=== PATIENT | female | born 1970 | race African-American/Black ===

== ENCOUNTER 2017-05-04 18:19 | Emergency (ER) | payer OTHER ==
[~2017-05-04] VITALS: Ht 149.9 cm; Wt 94.5 kg
[~2017-05-04 18:19] MED LIST: CHOL100062 PO; CLON2TAB3 PO; DIVA500T7 PO; DOCU-144 PO; FAMO20TA18 PO; FLUO40CA10 PO; METH-493 PO; POLY17PO6 PO; SULI150T39 PO
[2017-05-04 18:22] VITALS: Ht 149.9 cm; Wt 94.5 kg
[2017-05-04] MEDS ORDERED: EPINEPHrine 0.1 MG/ML SYG ONE (19:08)
[2017-05-04] MEDS ORDERED: OFLO5DRO3 OP (19:42)
--- NOTE | 2017-05-04 23:00 | ERD ---
ER Documentation Chief Complaint Date/Time DATE: 05/04/17 TIME: 22:52 Chief Complaint was taking a shower when glass shattered and hit her eye and body HPI This patient is a 46-year-old female presenting to the emergency department with complaints of possible glass in her left lower leg after a shower door shattered in her bathroom 2 days ago. She denies feeling foreign body anywhere else. She reports mild pain associated with the foreign body. Additionally she complains of right eye redness and mild pain which is been ongoing also for the past 2 days. She denies this being related to the last or incident. She denies fevers, chills, or other symptoms currently. She did not lose consciousness or have a head injury during the accident. ROS All systems reviewed and are negative except as per history of present illness. Medications Home Meds Active Scripts Ofloxacin (Ofloxacin) 5 Ml Drops, 2 DROP OP TID for 7 Days, #1 BOTTLE Prov:YESSI MOTTA PA-C 05/04/17 Polyethylene Glycol* (Miralax*) 17 Gm Powd.pack, 17 GM PO DAILY, #7 Prov:DASHA STONER MD 06/01/16 Docusate Sodium* (Colace*) 100 Mg Capsule, 100 MG PO TID, #21 CAP Prov:DASHA STONER MD 06/01/16 Reported Medications Sulindac* (Sulindac*) 150 Mg Tablet, 150 MG PO BID, TAB 05/29/16 Famotidine* (Famotidine*) 20 Mg Tablet, 20 MG PO DAILY, #30 TAB 05/29/16 Cholecalciferol* (Vitamin D3*) 1,000 Unit Tablet, 1000 UNIT PO DAILY, TAB 07/10/15 Clonazepam* (Clonazepam*) 2 Mg Tablet, 2 MG PO DAILY, TAB 07/10/15 Fluoxetine Hcl* (Prozac*) 40 Mg Capsule, 80 MG PO DAILY, CAP 07/10/15 Methimazole* (Methimazole*) 5 Mg Tablet, 5 MG PO DAILY, TAB 07/10/15 Divalproex Sodium* (Depakote*) 500 Mg Tablet.dr, 500 MG PO BID, TAB 07/10/15 Allergies Allergies: Coded Allergies: Metronidazole HCl (Verified Allergy, Unknown, 05/29/16) rash, nausea, vomiting metoclopramide HCl (Verified Allergy, Unknown, 05/29/16) nausea, vomiting, hives metronidazole (Verified Allergy, Unknown, 05/29/16) rash, nausea, vomiting PMhx/Soc History of Surgery: Yes (CHOLECYSTECTOMY ) Anesthesia Reaction: No Hx Neurological Disorder: No Hx Respiratory Disorders: No Hx Cardiac Disorders: No Hx Psychiatric Problems: Yes (bipolar and anxiety) Hx Miscellaneous Medical Probl: No Hx Alcohol Use: No Hx Substance Use: No Hx Tobacco Use: No Physical Exam Vitals Vital Signs Date Time Temp Pulse Resp B/P Pulse Ox O2 Delivery O2 Flow Rate FiO2 05/04/17 18:22 98.5 90 20 132/78 100 Physical Exam Const: Morbidly obese female in no acute distress. Nontoxic-appearing. Head: Atraumatic Eyes: Injected conjunctival noted on the right side. No visual acuity deficits. EOMs are intact bilaterally. ENT: Normal External Ears, Nose and Mouth. Neck: Full range of motion..~ No meningismus. Resp: Clear to auscultation bilaterally Cardio: Regular rate and rhythm, no murmurs Abd: Soft, non tender, non distended. Normal bowel sounds Skin: No petechiae or rashes Back: No midline or flank tenderness Ext: No cyanosis, or edema Neur: Awake and alert Psych: Normal Mood and Affect Results 24 hrs Current Medications Medications (Trade) Dose Ordered Sig/Aidee Route PRN Reason Start Time Stop Time Status Last Admin Dose Admin Epinephrine 1 mg STK-MED ONCE .ROUTE 05/04/17 19:08 05/04/17 19:09 DC Procedures/MDM 46-year-old female presenting to the emergency department with complaints of glass in the left lower leg. Foreign Body Removal by me: Location: Left lower leg Anesthesia: None required Technique: Tweezers used to bluntly dissect a small piece of glass. Complications: Neurovascularly intact post procedure 48 hour wound check. Scar minimization instructions given. There was minimal bleeding. Bacitracin applied. Band-Aid applied. The right eye appears to have conjunctivitis. I prescribed ofloxacin ophthalmic drops. The patient understood and agreed with the discharge plan of diagnosis. Close follow-up with primary care physician advised. Strict ER return precautions were discussed. Departure Diagnosis: Primary Impression: Conjunctivitis Additional Impression: Foreign body of leg Condition: Fair Patient Instructions: Conjunctivitis, Non-Specific Referrals: GUTIERREZ BASS MD Additional Instructions: Follow up with your PCP within the next 1-3 days for a repeat evaluation. If you require a referral to a specialist, your Primary Care Provider may be able to provide this for you. In most patient cases, a referral is not required. If you have further questions regarding this matter, please ask your Primary Care Provider. Return the the emergency department immediately if symptoms worsen or change. If you have any questions regarding medications, ask your pharmacist or us before you leave. If any adverse reactions, occur while taking your medications, discontinue the treatment and return to the emergency department immediately. If any new or worsening symptoms, uncontrolled fevers, or other unexplained symptoms occur, return to the emergency department immediately. Take your medications as directed, and complete the entire course of treatment. YESSI MOTTA PA-C May 04, 2017 23:00
== END 2017-05-04 20:03 | disposition home or self-care (01) ==
LOC: FTE 18:19
DX: H10.9 Unspecified conjunctivitis (principal); W25.XXXA Contact with sharp glass, initial encounter; Y92.9 Unspecified place or not applicable
CPT/HCPCS: J0171; Z7502; 99283

== ENCOUNTER 2017-08-26 12:26 | Emergency (ER) | payer OTHER ==
[~2017-08-26] VITALS: Ht 149.9 cm; Wt 90.9 kg
[~2017-08-26 12:26] MED LIST changes: +OFLO5DRO3 OP
[2017-08-26 12:29] VITALS: Ht 149.9 cm; Wt 90.9 kg
[2017-08-26] MEDS ORDERED: IPRATROPIUM (NEB) 0.5 MG/2.5 ML AMP NEB STA (15:07)
[2017-08-26] MEDS ORDERED: SOD CHLORIDE 0.9% 500 ML IV STA (15:07)
[2017-08-26] MEDS ORDERED: ALBUTEROL 0.083% (NEB) 2.5 MG/3 ML AMP NEB STA (15:07)
[2017-08-26 16:01] LABS: ADD UMIC YES; UR ASCORBIC ACID 20 mg/dL (NEGATIVE); UR BILIRUBIN (Dip) NEGATIVE (NEGATIVE); UR BLOOD (Dip) NEGATIVE (NEGATIVE); UR CLARITY CLOUDY (CLEAR); UR COLOR YELLOW (YELLOW); UR GLUCOSE (Dip) NEGATIVE (NEGATIVE); UR KETONES (Dip) NEGATIVE (NEGATIVE); UR LEUKOCYTE ESTERASE (Dip) TRACE Leu/ul (NEGATIVE); UR MUCUS FEW /HPF (NONE SEEN); UR NITRITE (Dip) NEGATIVE (NEGATIVE); UR RBC 0 /HPF (0-5); UR SQUAMOUS EPITHELIAL CELL MODERATE /HPF (FEW); UR TOTAL PROTEIN (Dip) NEGATIVE (NEGATIVE); UR UROBILINOGEN (Dip) 2+ mg/dL (NEGATIVE)
[2017-08-26 16:11] LABS: ABNORMAL IP MESSAGE 1; HEMATOCRIT 38.4 % (37.0-47.0); HEMOGLOBIN 12.1 g/dl (12.0-16.0); MEAN CORPUSCULAR HEMOGLOBIN 25.5 pg (29.0-33.0); MEAN CORPUSCULAR HGB CONC 31.5 g/dl (32.0-37.0); MEAN CORPUSCULAR VOLUME 80.8 fl (82.0-101.0); NUCLEATED RED BLOOD CELLS% 0.1 /100WBC (0.0-0.0); PLATELET COUNT 492 10^3/UL (140-415); RED BLOOD COUNT 4.75 10^6/ul (4.20-5.40); RED CELL DISTRIBUTION WIDTH 14.7 % (11.5-14.5); WHITE BLOOD COUNT 16.3 10^3/ul (4.8-10.8)
[2017-08-26 16:13] LABS: POSITIVE DIFF @See below
[2017-08-26] MEDS ORDERED: ALBUTEROL/IPRATROPIUM (NEB) 3 ML AMP HHN STA (16:28)
[2017-08-26 16:34] LABS: EOSINOPHILS % (M) 7 % (0-7); ERYTHROBLAST% (NRBC) (M) 2 % (0-0); MONOCYTES % (M) 3 % (0-11); PLATELET ESTIMATE NORMAL; REACTIVE LYMPHOCYTES% (M) 4 % (0-0)
[2017-08-26 16:50] LABS: ALANINE AMINOTRANSFERASE 30 IU/L (13-69); ALBUMIN 4.7 g/dl (3.3-4.9); ALBUMIN/GLOBULIN RATIO 1.14; ALKALINE PHOSPHATASE 123 IU/L (42-121); ANION GAP 17 (8-16); ASPARTATE AMINO TRANSFERASE 19 IU/L (15-46); BILIRUBIN,INDIRECT 0.1 mg/dl (0-1.1); BILIRUBIN,TOTAL 0.1 mg/dl (0.2-1.3); BLOOD UREA NITROGEN 7 mg/dl (7-20); CALCIUM 9.7 mg/dl (8.4-10.2); CARBON DIOXIDE 26 mmol/L (21-31); CHLORIDE 106 mmol/L (97-110); CREATININE 0.82 mg/dl (0.44-1.00); GLUCOSE 104 mg/dl (70-220); POTASSIUM 3.6 mmol/L (3.5-5.1); SODIUM 145 mmol/L (135-144); TOTAL PROTEIN 8.8 g/dl (6.1-8.1)
[2017-08-26 17:03] LABS: TROPONIN-I < 0.012 ng/ml (0.00-0.12)
--- NOTE | 2017-08-26 17:19 | RADRPT ---
PROCEDURE: XR Chest. CLINICAL INDICATION: Shortness of breath. TECHNIQUE: Two views. Frontal and lateral. COMPARISON: No prior study is available for comparison. FINDINGS: There is mild atelectasis at the lung bases. The lungs are otherwise clear. The heart size is normal. There is no pleural effusion. There is no pneumothorax. IMPRESSION: 1. Mild atelectasis at the lung bases. 2. Otherwise normal chest x-ray. RPTAT: QQ .Joaquin Guaman MD, MD Date Time Electronically viewed and signed by .Joaquin Guaman MD, on 08/26/2017 17:19 .R/
--- NOTE | 2017-08-26 17:24 | ERD ---
ER Documentation Chief Complaint Chief Complaint COUGH, CONGESTION, BACK PAIN, WEAKNESS, NAUSEA AND VOMITING ROS All systems reviewed and are negative except as per history of present illness. Medications Home Meds Active Scripts Ofloxacin (Ofloxacin) 5 Ml Drops, 2 DROP OP TID for 7 Days, #1 BOTTLE Prov:YESSI MOTTA PA-C 05/04/17 Polyethylene Glycol* (Miralax*) 17 Gm Powd.pack, 17 GM PO DAILY, #7 Prov:DASHA STONER MD 06/01/16 Docusate Sodium* (Colace*) 100 Mg Capsule, 100 MG PO TID, #21 CAP Prov:DASHA STONER MD 06/01/16 Reported Medications Sulindac* (Sulindac*) 150 Mg Tablet, 150 MG PO BID, TAB 05/29/16 Famotidine* (Famotidine*) 20 Mg Tablet, 20 MG PO DAILY, #30 TAB 05/29/16 Cholecalciferol* (Vitamin D3*) 1,000 Unit Tablet, 1000 UNIT PO DAILY, TAB 07/10/15 Clonazepam* (Clonazepam*) 2 Mg Tablet, 2 MG PO DAILY, TAB 07/10/15 Fluoxetine Hcl* (Prozac*) 40 Mg Capsule, 80 MG PO DAILY, CAP 07/10/15 Methimazole* (Methimazole*) 5 Mg Tablet, 5 MG PO DAILY, TAB 07/10/15 Divalproex Sodium* (Depakote*) 500 Mg Tablet.dr, 500 MG PO BID, TAB 07/10/15 Allergies Allergies: Coded Allergies: Metronidazole HCl (Verified Allergy, Unknown, 05/29/16) rash, nausea, vomiting metoclopramide HCl (Verified Allergy, Unknown, 05/29/16) nausea, vomiting, hives metronidazole (Verified Allergy, Unknown, 05/29/16) rash, nausea, vomiting PMhx/Soc History of Surgery: Yes (CHOLECYSTECTOMY ) Anesthesia Reaction: No Hx Neurological Disorder: No Hx Respiratory Disorders: No Hx Cardiac Disorders: No Hx Psychiatric Problems: Yes (bipolar and anxiety) Hx Miscellaneous Medical Probl: No Hx Alcohol Use: No Hx Substance Use: No Hx Tobacco Use: No Physical Exam Vitals Vital Signs Date Time Temp Pulse Resp B/P Pulse Ox O2 Delivery O2 Flow Rate FiO2 08/26/17 16:53 92 18 100 21 08/26/17 15:38 82 18 100 21 08/26/17 12:29 98.8 82 18 129/87 100 Physical Exam Const: [] Head: Atraumatic Eyes: Normal Conjunctiva ENT: Normal External Ears, Nose and Mouth. Neck: Full range of motion..~ No meningismus. Resp: Clear to auscultation bilaterally Cardio: Regular rate and rhythm, no murmurs Abd: Soft, non tender, non distended. Normal bowel sounds Skin: No petechiae or rashes Back: No midline or flank tenderness Ext: No cyanosis, or edema Neur: Awake and alert Psych: Normal Mood and Affect Result Diagram: 08/26/17 1550 08/26/17 1550 Results 24 hrs Laboratory Tests Test 08/26/17 15:32 08/26/17 15:50 Urine Color YELLOW Urine Clarity CLOUDY Urine pH 5.0 Urine Specific Perkins 1.020 Urine Ketones NEGATIVEmg/dL Urine Nitrite NEGATIVEmg/dL Urine Bilirubin NEGATIVEmg/dL Urine Urobilinogen 2+mg/dL Urine Leukocyte Esterase TRACELeu/ul Urine Microscopic RBC 0/HPF Urine Microscopic WBC 3/HPF Urine Squamous Epithelial Cells MODERATE/HPF Urine Mucus FEW/HPF Urine Hemoglobin NEGATIVEmg/dL Urine Glucose NEGATIVEmg/dL Urine Total Protein NEGATIVEmg/dl White Blood Count 16.310^3/ul Red Blood Count 4.7510^6/ul Hemoglobin 12.1g/dl Hematocrit 38.4% Mean Corpuscular Volume 80.8fl Mean Corpuscular Hemoglobin 25.5pg Mean Corpuscular Hemoglobin Concent 31.5g/dl Red Cell Distribution Width 14.7% Platelet Count 60185^3/UL Mean Platelet Volume 9.0fl Neutrophils % % Segmented Neutrophils % (Manual) 33% Lymphocytes % % Lymphocytes % (Manual) 53% Reactive Lymphocytes % (Manual) 4% Monocytes % % Monocytes % (Manual) 3% Eosinophils % % Eosinophils % (Manual) 7% Basophils % % Nucleated Red Blood Cells % 2% Neutrophils # 10^3/ul Absolute Lymphocytes (Manual) 8.610^3/ul Lymphocytes # 10^3/ul Reactive Lymphocytes # 0.610^3/ul Monocytes # 10^3/ul Absolute Monocytes (Manual) 0.410^3/ul Eosinophils # 10^3/ul Basophils # 10^3/ul Nucleated Red Blood Cells # 10^3/ul Platelet Estimate NORMAL Sodium Level 145mmol/L Potassium Level 3.6mmol/L Chloride Level 106mmol/L Carbon Dioxide Level 26mmol/L Anion Gap 17 Blood Urea Nitrogen 7mg/dl Creatinine 0.82mg/dl Glucose Level 104mg/dl Calcium Level 9.7mg/dl Total Bilirubin 0.1mg/dl Direct Bilirubin 0.00mg/dl Indirect Bilirubin 0.1mg/dl Aspartate Amino Transf (AST/SGOT) 19IU/L Alanine Aminotransferase (ALT/SGPT) 30IU/L Alkaline Phosphatase 123IU/L Troponin I < 0.012ng/ml Total Protein 8.8g/dl Albumin 4.7g/dl Globulin 4.10g/dl Albumin/Globulin Ratio 1.14 Current Medications Medications (Trade) Dose Ordered Sig/Aidee Route PRN Reason Start Time Stop Time Status Last Admin Dose Admin Sodium Chloride (NS) 500 ml @ 500 mls/hr Q1H STAT IV 08/26/17 15:07 08/26/17 16:06 DC Albuterol (Proventil 0.083% (Neb)) 2.5 mg ONCE STAT NEB 08/26/17 15:07 08/26/17 15:15 DC 08/26/17 15:28 Ipratropium [place] (Atrovent 0.02% (Neb)) 0.5 mg ONCE STAT NEB 08/26/17 15:07 08/26/17 15:15 DC 08/26/17 15:28 Albuterol/ Ipratropium (Duoneb) 3 ml ONCE STAT HHN 08/26/17 16:28 08/26/17 16:29 DC 08/26/17 16:53 DIAGNOSTIC IMAGING REPORT Patient: JONNATHAN SORENSEN : 1970 Age: 47 Sex: F MR #: [id number] DOS: 08/26/17 1507 Ordering MD: ARDEN PAN MD Location: [facility] Room/Bed: PROCEDURE: XR Chest. CLINICAL INDICATION: Shortness of breath. TECHNIQUE: Two views. Frontal and lateral. COMPARISON: No prior study is available for comparison. FINDINGS: There is mild atelectasis at the lung bases. The lungs are otherwise clear. The heart size is normal. There is no pleural effusion. There is no pneumothorax. IMPRESSION: 1. Mild atelectasis at the lung bases. 2. Otherwise normal chest x-ray. RPTAT: QQ .Joaquin Guaman MD, Date Time Electronically viewed and signed by .Joaquin Guaman MD, on 08/26/2017 17:19 .R/ CC: ARDEN PAN MD, CRISTINA MD Aug 26, 2017 17:24
[2017-08-26] MEDS ORDERED: GUAI120L41 PO (17:32)
[2017-08-26] MEDS ORDERED: AMOX1TAB10 PO (17:32)
[2017-08-26] MEDS ORDERED: HYDR-906 PO (17:32)
[2017-08-26] MEDS ORDERED: ALBU8.5H3 INH (17:35)
[2017-08-26 17:52] VITALS: BP 135/78; PULSE 80; RESP 17
[2017-08-26] MEDS ORDERED: AMOXICILLIN/CLAV 875 MG TAB PO ONE (18:00)
== END 2017-08-26 17:58 | disposition home or self-care (01) ==
LOC: FTE 12:26
DX: R05 Cough (principal); R09.81 Nasal congestion; M54.9 Dorsalgia, unspecified; R53.1 Weakness; R11.2 Nausea with vomiting, unspecified
CPT/HCPCS: 36415; 71020; 80053; 81001; 84484; 85025; 93005; 94640; 94664; J7040; Z7502; Z7610

== ENCOUNTER 2017-08-28 02:52 | Emergency (ER) | payer OTHER ==
[~2017-08-28] VITALS: Ht 160 cm; Wt 91.0 kg
[~2017-08-28 02:52] MED LIST changes: +ALBU8.5H3 INH; +AMOX1TAB10 PO; +GUAI120L41 PO; +HYDR-906 PO
[2017-08-28 02:55] VITALS: Ht 160 cm; Wt 91.0 kg
[2017-08-28] MEDS ORDERED: DEXAMETHASONE 10 MG/ML 1 ML INJ IV STA (03:19)
[2017-08-28] MEDS ORDERED: LEVALBUTEROL (NEB) 1.25 MG/0.5 ML AMP INH STA (03:19)
[2017-08-28] MEDS ORDERED: ONDANSETRON (ODT) 4 MG TAB ODT STA (04:10)
[2017-08-28] MEDS ORDERED: LORAZEPAM 0.5 MG TAB PO ONE (04:30)
--- NOTE | 2017-08-28 05:47 | ERD ---
ER Documentation Chief Complaint Chief Complaint cough x 1 week HPI This is a 47-year-old female with past medical history for anxiety and bipolar disorder and chronic back pain, presents the emergency department for cough and shortness of breath 1 week. Patient was recently seen here 1 day ago and was diagnosed with bronchitis. Patient was given pro-air inhaler, Jefferson tablets and guaifenesin/codeine cough syrup. Patient states these medications are "not helping me breath." Patient states she is having acute on chronic back pain to upper back. ROS All systems reviewed and are negative except as per history of present illness. Medications Home Meds Active Scripts Albuterol Sulfate* (Proair HFA*) 8.5 Gm Hfa.aer.ad, 2 PUFF INH Q4 for COUGH, #1 INHALER Prov:ARDEN PAN MD 08/26/17 Hydrocodone/Acetaminophen (Jefferson 5-325 Tablet) 1 Each Tablet, 1 EACH PO TID for SEVERE PAIN LEVEL 7-10 for 5 Days, #15 TAB Prov:ARDEN PAN MD 08/26/17 Guaifenesin/Codeine Phosphate (Codeine-Guaifen 10-100 mg/5 ml) 120 Ml Liquid, 5 ML PO QHS for COUGH for 5 Days Prov:ARDEN PAN MD 08/26/17 Amoxicillin/Potassium Clav (Amox-Clav 875-125 mg Tablet) 875-125 mg Tab, 1 TAB PO BID for 7 Days, #14 TAB Prov:ARDEN PAN MD 08/26/17 Ofloxacin (Ofloxacin) 5 Ml Drops, 2 DROP OP TID for 7 Days, #1 BOTTLE Prov:YESSI MOTTA PA-C 05/04/17 Polyethylene Glycol* (Miralax*) 17 Gm Powd.pack, 17 GM PO DAILY, #7 Prov:DASHA STONER MD 06/01/16 Docusate Sodium* (Colace*) 100 Mg Capsule, 100 MG PO TID, #21 CAP Prov:DASHA STONER MD 06/01/16 Reported Medications Sulindac* (Sulindac*) 150 Mg Tablet, 150 MG PO BID, TAB 05/29/16 Famotidine* (Famotidine*) 20 Mg Tablet, 20 MG PO DAILY, #30 TAB 05/29/16 Cholecalciferol* (Vitamin D3*) 1,000 Unit Tablet, 1000 UNIT PO DAILY, TAB 07/10/15 Clonazepam* (Clonazepam*) 2 Mg Tablet, 2 MG PO DAILY, TAB 07/10/15 Fluoxetine Hcl* (Prozac*) 40 Mg Capsule, 80 MG PO DAILY, CAP 07/10/15 Methimazole* (Methimazole*) 5 Mg Tablet, 5 MG PO DAILY, TAB 07/10/15 Divalproex Sodium* (Depakote*) 500 Mg Tablet.dr, 500 MG PO BID, TAB 07/10/15 Allergies Allergies: Coded Allergies: Metronidazole HCl (Verified Allergy, Unknown, 05/29/16) rash, nausea, vomiting metoclopramide HCl (Verified Allergy, Unknown, 05/29/16) nausea, vomiting, hives metronidazole (Verified Allergy, Unknown, 05/29/16) rash, nausea, vomiting PMhx/Soc History of Surgery: Yes (CHOLECYSTECTOMY ) Anesthesia Reaction: No Hx Neurological Disorder: No Hx Respiratory Disorders: No Hx Cardiac Disorders: No Hx Psychiatric Problems: Yes (bipolar and anxiety) Hx Miscellaneous Medical Probl: No Hx Alcohol Use: No Hx Substance Use: No Hx Tobacco Use: No Smoking Status: Never smoker Physical Exam Vitals Vital Signs Date Time Temp Pulse Resp B/P Pulse Ox O2 Delivery O2 Flow Rate FiO2 08/28/17 03:36 98 20 92 21 08/28/17 02:55 98.8 94 20 112/68 100 Physical Exam Const: alert, anxious Head: Atraumatic Eyes: Normal Conjunctiva ENT: Normal External Ears, Nose and Mouth. Neck: Full range of motion..~ No meningismus. Resp: Clear to auscultation bilaterally. no wheezing, rhonchi or crackles. Cardio: Regular rate and rhythm, no murmurs Abd: Soft, non tender, non distended. Normal bowel sounds Skin: No petechiae or rashes Back: No midline or flank tenderness Ext: No cyanosis, or edema Neur: Awake and alert Psych: Normal Mood and Affect Results 24 hrs Current Medications Medications (Trade) Dose Ordered Sig/Aidee Route PRN Reason Start Time Stop Time Status Last Admin Dose Admin Dexamethasone (Decadron) 10 mg ONCE STAT IV 08/28/17 03:19 10/28/17 03:21 DC 08/28/17 04:13 Levalbuterol (Xopenex Neb) 1.25 mg ONCE STAT INH 08/28/17 03:19 08/28/17 03:21 DC 08/28/17 03:35 Ondansetron HCl (Zofran Odt) 4 mg ONCE STAT ODT 08/28/17 04:10 08/28/17 04:11 DC 08/28/17 04:16 Lorazepam (Ativan) 0.5 mg ONCE ONCE PO 08/28/17 04:30 08/28/17 04:31 DC 08/28/17 04:16 Procedures/MDM MDM: 47 year old female presents to ER with complaints with cough and shortness of breath x 1 week. Patient was diagnosed with bronchitis 1 day ago and was discharged with medications for this. Patient presents alert and anxious by ambulance. Patient given nebulizer treatment of Xopenex. Patient also given 10 mg Decadron IV. Upon reassessment, patient continues to be anxious. Lung sounds are clear. Patient given 0.5 mg Ativan. Upon reassessment, patient appears calm and cooperative. Heart rate is 110s. This is likely related to after breathing treatment. Patient appears in no acute distress. Consulted with Dr. Richards and we agree that patient is appropriate for outpatient management. Vital signs remained stable. Low suspicion for pneumonia, pleural effusion, pneumothorax or acute AL. Differential diagnosis includes but not limited to URI, influenza, otitis media , otitis externa, asthma exacerbation, croup, bronchitis, bronchiolitis and costochondritis. Patient is appropriate for outpatient management. Instructed patient to follow- up with primary care provider in the next 2-3 days for reassessment and additional management. Return to ED for any high fever, chest pain, difficulty breathing, shortness breath, wheezing, vomiting, diarrhea, abdominal pain or any new or worsening symptoms. Patient verbalizes understanding. All questions answered at discharge. Disclaimer: Inadvertent spelling and grammatical errors are likely due to EHR/ dictation software use and do not reflect on the overall quality of patient care. Also, please note that the electronic time recorded on this note does not necessarily reflect the actual time of the patient encounter. Departure Diagnosis: Primary Impression: Shortness of breath Condition: Stable Patient Instructions: Coping with Shortness of Breath: Controlling Stress Referrals: COMMUNITY CLINICS YOU HAVE RECEIVED A MEDICAL SCREENING EXAM AND THE RESULTS INDICATE THAT YOU DO NOT HAVE A CONDITION THAT REQUIRES URGENT TREATMENT IN THE EMERGENCY DEPARTMENT. FURTHER EVALUATION AND TREATMENT OF YOUR CONDITION CAN WAIT UNTIL YOU ARE SEEN IN YOUR DOCTORS OFFICE WITHIN THE NEXT 1-2 DAYS. IT IS YOUR RESPONSIBILITY TO MAKE AN APPOINTMENT FOR FOLOW-UP CARE. IF YOU HAVE A PRIMARY DOCTOR --you should call your primary doctor and schedule an appointment IF YOU DO NOT HAVE A PRIMARY DOCTOR YOU CAN CALL OUR PHYSICIAN REFERRAL HOTLINE AT IF YOU CAN NOT AFFORD TO SEE A PHYSICIAN YOU CAN CHOSE FROM THE FOLLOWING [facility] [address] [facility]. [facility] [address] [facility] [address] [facility] [address] [facility] [facility] [address] [facility]. [facility] [address] [facility] [place]. [facility] YOU HAVE RECEIVED A MEDICAL SCREENING EXAM AND THE RESULTS INDICATE THAT YOU DO NOT HAVE A CONDITION THAT REQUIRES URGENT TREATMENT IN THE EMERGENCY DEPARTMENT. FURTHER EVALUATION AND TREATMENT OF YOUR CONDITION CAN WAIT UNTIL YOU ARE SEEN IN YOUR DOCTORS OFFICE WITHIN THE NEXT 1-2 DAYS. IT IS YOUR RESPONSIBILITY TO MAKE AN APPOINTMENT FOR FOLOW-UP CARE. IF YOU HAVE A PRIMARY DOCTOR --you should call your primary doctor and schedule and appointment IF YOU DO NOT HAVE A PRIMARY DOCTOR YOU CAN CALL OUR PHYSICIAN REFERRAL HOTLINE AT . IF YOU CAN NOT AFFORD TO SEE A PHYSICIAN YOU CAN CHOSE FROM THE FOLLOWING [facility]: [facility] [address] [place] [address] [facility] [address] [place] [address] [facility] + [facility] [address] [place] [address] Additional Instructions: Call your primary care doctor TOMORROW for an appointment during the next 2-3 days.See the doctor sooner or return here if your condition worsens before your appointment time. Return to ED for any high fever, chest pain, difficulty breathing, shortness breath, wheezing, vomiting, diarrhea, abdominal pain or any new or worsening symptoms. MAGDA TODD NP Aug 28, 2017 05:47
--- NOTE | 2017-08-28 05:47 | ERD ---
ER Documentation Chief Complaint Chief Complaint cough x 1 week HPI This is a 47-year-old female with past medical history for anxiety and bipolar disorder and chronic back pain, presents the emergency department for cough and shortness of breath 1 week. Patient was recently seen here 1 day ago and was diagnosed with bronchitis. Patient was given pro-air inhaler, [place] tablets and guaifenesin/codeine cough syrup. Patient states these medications are "not helping me breath." Patient states she is having acute on chronic back pain to upper back. ROS All systems reviewed and are negative except as per history of present illness. Medications Home Meds Active Scripts Albuterol Sulfate* (Proair HFA*) 8.5 Gm Hfa.aer.ad, 2 PUFF INH Q4 for COUGH, #1 INHALER Prov:ARDEN PAN MD 08/26/17 Hydrocodone/Acetaminophen ([place] 5-325 Tablet) 1 Each Tablet, 1 EACH PO TID for SEVERE PAIN LEVEL 7-10 for 5 Days, #15 TAB Prov:ARDEN PAN MD 08/26/17 Guaifenesin/Codeine Phosphate (Codeine-Guaifen 10-100 mg/5 ml) 120 Ml Liquid, 5 ML PO QHS for COUGH for 5 Days Prov:ARDEN PAN MD 08/26/17 Amoxicillin/Potassium Clav (Amox-Clav 875-125 mg Tablet) 875-125 mg Tab, 1 TAB PO BID for 7 Days, #14 TAB Prov:ARDEN PAN MD 08/26/17 Ofloxacin (Ofloxacin) 5 Ml Drops, 2 DROP OP TID for 7 Days, #1 BOTTLE Prov:YESSI MOTTA PA-C 05/04/17 Polyethylene Glycol* (Miralax*) 17 Gm Powd.pack, 17 GM PO DAILY, #7 Prov:DASHA STONER MD 06/01/16 Docusate Sodium* (Colace*) 100 Mg Capsule, 100 MG PO TID, #21 CAP Prov:DASHA STONER MD 06/01/16 Reported Medications Sulindac* (Sulindac*) 150 Mg Tablet, 150 MG PO BID, TAB 05/29/16 Famotidine* (Famotidine*) 20 Mg Tablet, 20 MG PO DAILY, #30 TAB 05/29/16 Cholecalciferol* (Vitamin D3*) 1,000 Unit Tablet, 1000 UNIT PO DAILY, TAB 07/10/15 Clonazepam* (Clonazepam*) 2 Mg Tablet, 2 MG PO DAILY, TAB 07/10/15 Fluoxetine Hcl* (Prozac*) 40 Mg Capsule, 80 MG PO DAILY, CAP 07/10/15 Methimazole* (Methimazole*) 5 Mg Tablet, 5 MG PO DAILY, TAB 07/10/15 Divalproex Sodium* (Depakote*) 500 Mg Tablet.dr, 500 MG PO BID, TAB 07/10/15 Allergies Allergies: Coded Allergies: Metronidazole HCl (Verified Allergy, Unknown, 05/29/16) rash, nausea, vomiting metoclopramide HCl (Verified Allergy, Unknown, 05/29/16) nausea, vomiting, hives metronidazole (Verified Allergy, Unknown, 05/29/16) rash, nausea, vomiting PMhx/Soc History of Surgery: Yes (CHOLECYSTECTOMY ) Anesthesia Reaction: No Hx Neurological Disorder: No Hx Respiratory Disorders: No Hx Cardiac Disorders: No Hx Psychiatric Problems: Yes (bipolar and anxiety) Hx Miscellaneous Medical Probl: No Hx Alcohol Use: No Hx Substance Use: No Hx Tobacco Use: No Smoking Status: Never smoker Physical Exam Vitals Vital Signs Date Time Temp Pulse Resp B/P Pulse Ox O2 Delivery O2 Flow Rate FiO2 08/28/17 03:36 98 20 92 21 08/28/17 02:55 98.8 94 20 112/68 100 Physical Exam Const: alert, anxious Head: Atraumatic Eyes: Normal Conjunctiva ENT: Normal External Ears, Nose and Mouth. Neck: Full range of motion..~ No meningismus. Resp: Clear to auscultation bilaterally. no wheezing, rhonchi or crackles. Cardio: Regular rate and rhythm, no murmurs Abd: Soft, non tender, non distended. Normal bowel sounds Skin: No petechiae or rashes Back: No midline or flank tenderness Ext: No cyanosis, or edema Neur: Awake and alert Psych: Normal Mood and Affect Results 24 hrs Current Medications Medications (Trade) Dose Ordered Sig/Aidee Route PRN Reason Start Time Stop Time Status Last Admin Dose Admin Dexamethasone (Decadron) 10 mg ONCE STAT IV 08/28/17 03:19 10/28/17 03:21 DC 08/28/17 04:13 Levalbuterol (Xopenex Neb) 1.25 mg ONCE STAT INH 08/28/17 03:19 08/28/17 03:21 DC 08/28/17 03:35 Ondansetron HCl (Zofran Odt) 4 mg ONCE STAT ODT 08/28/17 04:10 08/28/17 04:11 DC 08/28/17 04:16 Lorazepam (Ativan) 0.5 mg ONCE ONCE PO 08/28/17 04:30 08/28/17 04:31 DC 08/28/17 04:16 Procedures/MDM MDM: 47 year old female presents to ER with complaints with cough and shortness of breath x 1 week. Patient was diagnosed with bronchitis 1 day ago and was discharged with medications for this. Patient presents alert and anxious by ambulance. Patient given nebulizer treatment of Xopenex. Patient also given 10 mg Decadron IV. Upon reassessment, patient continues to be anxious. Lung sounds are clear. Patient given 0.5 mg Ativan. Upon reassessment, patient appears calm and cooperative. Heart rate is 110s. This is likely related to after breathing treatment. Patient appears in no acute distress. Consulted with Dr. Richards and we agree that patient is appropriate for outpatient management. Vital signs remained stable. Low suspicion for pneumonia, pleural effusion, pneumothorax or acute NE. Differential diagnosis includes but not limited to URI, influenza, otitis media , otitis externa, asthma exacerbation, croup, bronchitis, bronchiolitis and costochondritis. Patient is appropriate for outpatient management. Instructed patient to follow- up with primary care provider in the next 2-3 days for reassessment and additional management. Return to ED for any high fever, chest pain, difficulty breathing, shortness breath, wheezing, vomiting, diarrhea, abdominal pain or any new or worsening symptoms. Patient verbalizes understanding. All questions answered at discharge. Disclaimer: Inadvertent spelling and grammatical errors are likely due to EHR/ dictation software use and do not reflect on the overall quality of patient care. Also, please note that the electronic time recorded on this note does not necessarily reflect the actual time of the patient encounter. Departure Diagnosis: Primary Impression: Shortness of breath Condition: Stable Patient Instructions: Coping with Shortness of Breath: Controlling Stress Referrals: COMMUNITY CLINICS YOU HAVE RECEIVED A MEDICAL SCREENING EXAM AND THE RESULTS INDICATE THAT YOU DO NOT HAVE A CONDITION THAT REQUIRES URGENT TREATMENT IN THE EMERGENCY DEPARTMENT. FURTHER EVALUATION AND TREATMENT OF YOUR CONDITION CAN WAIT UNTIL YOU ARE SEEN IN YOUR DOCTORS OFFICE WITHIN THE NEXT 1-2 DAYS. IT IS YOUR RESPONSIBILITY TO MAKE AN APPOINTMENT FOR FOLOW-UP CARE. IF YOU HAVE A PRIMARY DOCTOR --you should call your primary doctor and schedule an appointment IF YOU DO NOT HAVE A PRIMARY DOCTOR YOU CAN CALL OUR PHYSICIAN REFERRAL HOTLINE AT IF YOU CAN NOT AFFORD TO SEE A PHYSICIAN YOU CAN CHOSE FROM THE FOLLOWING [facility] [address] [facility]. [facility] [address] [facility]. [facility] [address] [facility] [address] [facility] [address] [facility]. [facility] [address] [facility]. [facility] YOU HAVE RECEIVED A MEDICAL SCREENING EXAM AND THE RESULTS INDICATE THAT YOU DO NOT HAVE A CONDITION THAT REQUIRES URGENT TREATMENT IN THE EMERGENCY DEPARTMENT. FURTHER EVALUATION AND TREATMENT OF YOUR CONDITION CAN WAIT UNTIL YOU ARE SEEN IN YOUR DOCTORS OFFICE WITHIN THE NEXT 1-2 DAYS. IT IS YOUR RESPONSIBILITY TO MAKE AN APPOINTMENT FOR FOLOW-UP CARE. IF YOU HAVE A PRIMARY DOCTOR --you should call your primary doctor and schedule and appointment IF YOU DO NOT HAVE A PRIMARY DOCTOR YOU CAN CALL OUR PHYSICIAN REFERRAL HOTLINE AT . IF YOU CAN NOT AFFORD TO SEE A PHYSICIAN YOU CAN CHOSE FROM THE FOLLOWING [facility] INSTITUTIONS: [facility] [address] [place] [address] [facility] [address] [place] [address] [facility] [address] [place] [address] Additional Instructions: Call your primary care doctor TOMORROW for an appointment during the next 2-3 days.See the doctor sooner or return here if your condition worsens before your appointment time. Return to ED for any high fever, chest pain, difficulty breathing, shortness breath, wheezing, vomiting, diarrhea, abdominal pain or any new or worsening symptoms. MAGDA TODD NP Aug 28, 2017 05:47
--- NOTE | 2017-08-28 05:47 | ERD ---
ER Documentation Chief Complaint Chief Complaint cough x 1 week HPI This is a 47-year-old female with past medical history for anxiety and bipolar disorder and chronic back pain, presents the emergency department for cough and shortness of breath 1 week. Patient was recently seen here 1 day ago and was diagnosed with bronchitis. Patient was given pro-air inhaler, [place] tablets and guaifenesin/codeine cough syrup. Patient states these medications are "not helping me breath." Patient states she is having acute on chronic back pain to upper back. ROS All systems reviewed and are negative except as per history of present illness. Medications Home Meds Active Scripts Albuterol Sulfate* (Proair HFA*) 8.5 Gm Hfa.aer.ad, 2 PUFF INH Q4 for COUGH, #1 INHALER Prov:ARDEN PAN MD 08/26/17 Hydrocodone/Acetaminophen ([place] 5-325 Tablet) 1 Each Tablet, 1 EACH PO TID for SEVERE PAIN LEVEL 7-10 for 5 Days, #15 TAB Prov:ARDEN PAN MD 08/26/17 Guaifenesin/Codeine Phosphate (Codeine-Guaifen 10-100 mg/5 ml) 120 Ml Liquid, 5 ML PO QHS for COUGH for 5 Days Prov:RADEN PAN MD 08/26/17 Amoxicillin/Potassium Clav (Amox-Clav 875-125 mg Tablet) 875-125 mg Tab, 1 TAB PO BID for 7 Days, #14 TAB Prov:ARDEN PAN MD 08/26/17 Ofloxacin (Ofloxacin) 5 Ml Drops, 2 DROP OP TID for 7 Days, #1 BOTTLE Prov:YESSI MOTTA PA-C 05/04/17 Polyethylene Glycol* (Miralax*) 17 Gm Powd.pack, 17 GM PO DAILY, #7 Prov:DASHA STONER MD 06/01/16 Docusate Sodium* (Colace*) 100 Mg Capsule, 100 MG PO TID, #21 CAP Prov:DASHA STONER MD 06/01/16 Reported Medications Sulindac* (Sulindac*) 150 Mg Tablet, 150 MG PO BID, TAB 05/29/16 Famotidine* (Famotidine*) 20 Mg Tablet, 20 MG PO DAILY, #30 TAB 05/29/16 Cholecalciferol* (Vitamin D3*) 1,000 Unit Tablet, 1000 UNIT PO DAILY, TAB 07/10/15 Clonazepam* (Clonazepam*) 2 Mg Tablet, 2 MG PO DAILY, TAB 07/10/15 Fluoxetine Hcl* (Prozac*) 40 Mg Capsule, 80 MG PO DAILY, CAP 07/10/15 Methimazole* (Methimazole*) 5 Mg Tablet, 5 MG PO DAILY, TAB 07/10/15 Divalproex Sodium* (Depakote*) 500 Mg Tablet.dr, 500 MG PO BID, TAB 07/10/15 Allergies Allergies: Coded Allergies: Metronidazole HCl (Verified Allergy, Unknown, 05/29/16) rash, nausea, vomiting metoclopramide HCl (Verified Allergy, Unknown, 05/29/16) nausea, vomiting, hives metronidazole (Verified Allergy, Unknown, 05/29/16) rash, nausea, vomiting PMhx/Soc History of Surgery: Yes (CHOLECYSTECTOMY ) Anesthesia Reaction: No Hx Neurological Disorder: No Hx Respiratory Disorders: No Hx Cardiac Disorders: No Hx Psychiatric Problems: Yes (bipolar and anxiety) Hx Miscellaneous Medical Probl: No Hx Alcohol Use: No Hx Substance Use: No Hx Tobacco Use: No Smoking Status: Never smoker Physical Exam Vitals Vital Signs Date Time Temp Pulse Resp B/P Pulse Ox O2 Delivery O2 Flow Rate FiO2 08/28/17 03:36 98 20 92 21 08/28/17 02:55 98.8 94 20 112/68 100 Physical Exam Const: alert, anxious Head: Atraumatic Eyes: Normal Conjunctiva ENT: Normal External Ears, Nose and Mouth. Neck: Full range of motion..~ No meningismus. Resp: Clear to auscultation bilaterally. no wheezing, rhonchi or crackles. Cardio: Regular rate and rhythm, no murmurs Abd: Soft, non tender, non distended. Normal bowel sounds Skin: No petechiae or rashes Back: No midline or flank tenderness Ext: No cyanosis, or edema Neur: Awake and alert Psych: Normal Mood and Affect Results 24 hrs Current Medications Medications (Trade) Dose Ordered Sig/Aidee Route PRN Reason Start Time Stop Time Status Last Admin Dose Admin Dexamethasone (Decadron) 10 mg ONCE STAT IV 08/28/17 03:19 10/28/17 03:21 DC 08/28/17 04:13 Levalbuterol (Xopenex Neb) 1.25 mg ONCE STAT INH 08/28/17 03:19 08/28/17 03:21 DC 08/28/17 03:35 Ondansetron HCl (Zofran Odt) 4 mg ONCE STAT ODT 08/28/17 04:10 08/28/17 04:11 DC 08/28/17 04:16 Lorazepam (Ativan) 0.5 mg ONCE ONCE PO 08/28/17 04:30 08/28/17 04:31 DC 08/28/17 04:16 Procedures/MDM MDM: 47 year old female presents to ER with complaints with cough and shortness of breath x 1 week. Patient was diagnosed with bronchitis 1 day ago and was discharged with medications for this. Patient presents alert and anxious by ambulance. Patient given nebulizer treatment of Xopenex. Patient also given 10 mg Decadron IV. Upon reassessment, patient continues to be anxious. Lung sounds are clear. Patient given 0.5 mg Ativan. Upon reassessment, patient appears calm and cooperative. Heart rate is 110s. This is likely related to after breathing treatment. Patient appears in no acute distress. Consulted with Dr. Richards and we agree that patient is appropriate for outpatient management. Vital signs remained stable. Low suspicion for pneumonia, pleural effusion, pneumothorax or acute PR. Differential diagnosis includes but not limited to URI, influenza, otitis media , otitis externa, asthma exacerbation, croup, bronchitis, bronchiolitis and costochondritis. Patient is appropriate for outpatient management. Instructed patient to follow- up with primary care provider in the next 2-3 days for reassessment and additional management. Return to ED for any high fever, chest pain, difficulty breathing, shortness breath, wheezing, vomiting, diarrhea, abdominal pain or any new or worsening symptoms. Patient verbalizes understanding. All questions answered at discharge. Disclaimer: Inadvertent spelling and grammatical errors are likely due to EHR/ dictation software use and do not reflect on the overall quality of patient care. Also, please note that the electronic time recorded on this note does not necessarily reflect the actual time of the patient encounter. Departure Diagnosis: Primary Impression: Shortness of breath Condition: Stable Patient Instructions: Coping with Shortness of Breath: Controlling Stress Referrals: COMMUNITY CLINICS YOU HAVE RECEIVED A MEDICAL SCREENING EXAM AND THE RESULTS INDICATE THAT YOU DO NOT HAVE A CONDITION THAT REQUIRES URGENT TREATMENT IN THE EMERGENCY DEPARTMENT. FURTHER EVALUATION AND TREATMENT OF YOUR CONDITION CAN WAIT UNTIL YOU ARE SEEN IN YOUR DOCTORS OFFICE WITHIN THE NEXT 1-2 DAYS. IT IS YOUR RESPONSIBILITY TO MAKE AN APPOINTMENT FOR FOLOW-UP CARE. IF YOU HAVE A PRIMARY DOCTOR --you should call your primary doctor and schedule an appointment IF YOU DO NOT HAVE A PRIMARY DOCTOR YOU CAN CALL OUR PHYSICIAN REFERRAL HOTLINE AT IF YOU CAN NOT AFFORD TO SEE A PHYSICIAN YOU CAN CHOSE FROM THE FOLLOWING [facility] [address] [facility]. [facility] [address] [facility] [address] [facility]. [facility] [address] [facility]. [facility] [address] [facility]. [facility] [address] [facility]. [facility] YOU HAVE RECEIVED A MEDICAL SCREENING EXAM AND THE RESULTS INDICATE THAT YOU DO NOT HAVE A CONDITION THAT REQUIRES URGENT TREATMENT IN THE EMERGENCY DEPARTMENT. FURTHER EVALUATION AND TREATMENT OF YOUR CONDITION CAN WAIT UNTIL YOU ARE SEEN IN YOUR DOCTORS OFFICE WITHIN THE NEXT 1-2 DAYS. IT IS YOUR RESPONSIBILITY TO MAKE AN APPOINTMENT FOR FOLOW-UP CARE. IF YOU HAVE A PRIMARY DOCTOR --you should call your primary doctor and schedule and appointment IF YOU DO NOT HAVE A PRIMARY DOCTOR YOU CAN CALL OUR PHYSICIAN REFERRAL HOTLINE AT . IF YOU CAN NOT AFFORD TO SEE A PHYSICIAN YOU CAN CHOSE FROM THE FOLLOWING [facility] IN[facility]UTIONS: [facility] [address] [place] [address] [facility] [address] [place] [address] [facility] [address] [place] [address] Additional Instructions: Call your primary care doctor TOMORROW for an appointment during the next 2-3 days.See the doctor sooner or return here if your condition worsens before your appointment time. Return to ED for any high fever, chest pain, difficulty breathing, shortness breath, wheezing, vomiting, diarrhea, abdominal pain or any new or worsening symptoms. MAGDA TODD NP Aug 28, 2017 05:47
== END 2017-08-28 05:57 | disposition home or self-care (01) ==
LOC: FTE 02:52
DX: R06.02 Shortness of breath (principal)
CPT/HCPCS: 94664; 96374; J1100; Z7502; Z7610

== ENCOUNTER 2017-11-03 05:47 | Day surgery (SDC) | END 2017-11-03 10:35 | disposition home or self-care (01) ==